=== PATIENT | male | born 1985 ===

== ENCOUNTER 2021-04-13 07:47 | Outpatient (CLI) | payer OTHER ==
[~2021-04-13 07:47] MED LIST: BUPRENORPHINE1 EAC1 TD; DICLOFENAC EPO1 EACH TD; FLECTOR1 EACH TOP; KENALOG-8080 MG/1 ML IM; KETO10TA2 PO; MEDROLPACK PO; NORFLEX100MG PO; PREGABALIN100 MG PO; PREGABALIN200 MG PO; PREGABALIN50 MG PO; PREGABALIN75 MG PO
== END 2021-04-13 08:00 | disposition home or self-care (01) ==
LOC: TOM 07:47
PROVIDERS: ATTEND Physical Medicine & Rehabilitation
DX: M54.59 Other low back pain (principal)